=== PATIENT | male | born 1970 | race Caucasian/White ===

== ENCOUNTER → 2016-10-16 | Outpatient (CLI) | payer OTHER | END | disposition home or self-care (01) | LOC: PCVCIMAG 09:36 | PROVIDERS: ATTEND Internal Medicine Cardiovascular Disease | DX: I10 Essential (primary) hypertension (principal); E78.5 Hyperlipidemia, unspecified; M19.90 Unspecified osteoarthritis, unspecified site; I63.9 Cerebral infarction, unspecified; E78.1 Pure hyperglyceridemia; J44.9 Chronic obstructive pulmonary disease, unspecified; I77.9 Disorder of arteries and arterioles, unspecified; I25.10 Atherosclerotic heart disease of native coronary artery without angina pectoris; R42 Dizziness and giddiness; R51 Headache | CPT/HCPCS: 76770; 80061; 93005; 93975 ==

== ENCOUNTER → 2017-10-25 | Outpatient (CLI) | payer OTHER | END | disposition home or self-care (01) | LOC: PCVCIMAG 09:42 | DX: Z01.818 Encounter for other preprocedural examination (principal); I25.10 Atherosclerotic heart disease of native coronary artery without angina pectoris; I10 Essential (primary) hypertension; E78.5 Hyperlipidemia, unspecified; I73.9 Peripheral vascular disease, unspecified; J44.9 Chronic obstructive pulmonary disease, unspecified; I25.2 Old myocardial infarction; G47.30 Sleep apnea, unspecified | CPT/HCPCS: 93325; 93351 ==

== ENCOUNTER → 2018-08-14 | Outpatient (CLI) | payer OTHER ==
[~2018-08-14] MED LIST: REGADENOSON 0.4 MG/5 ML DISP.SYRIN. IV ONE
--- NOTE | 2018-08-15 11:20 | PCVCIMAG ---
APPROVED REPORT Imaging Protocol: Rest Tc-99m/Stress Tc-99m 1 day Study performed: 08/14/2018 08:47:20 Indication: CAD , Chest pain, Dyspnea, Failed Stress Echo Patient Location: Out-Patient Stress Nurse: Ashley Vega RN, Dana Best RN [place] Tech:JOSUE Cruz Ht: 6 ft 1 in Wt: 245 lbs BSA: 2.35 m2 HR: 84 bpm BP: 128/92 mmHg BMI: 32.3 Rhythm: Sinus Rhythm, Nonspecific T wave Abn Medical History Medical History: HTN, Hyperlipidemia, PVD, CVD (CVA x 2), Current smoker Medications: Atorvastatin, Klonopin, Plavix, Zetia, Imdur, Ranexa, Carvedilol, Benicar-HCT Allergies: Neosporin, Bacitracin Cardiac Risk Factors: Age Pretest Chest Pain Characteristics: No chest pain Exercise History: Physically active Meds Held (24 hrs): Carvedilol, Imdur Collateralized Occluded RCA Resting Data Rest SPECT myocardial perfusion imaging was performed in supine position 45 minutes following the intravenous injection of 11.4 mCi of Tc-99m Sestamibi. Time of rest injection: 819 Date: 08/14/2018 Administration Route: IV Administration Site: Right Wrist Pharmacologic Stress Pharmacologic stress test was performed by injecting Regadenoson 0.4 mg IV push over 10-15 seconds immediately followed by the intravenous injection of 34.8 mCi of Tc-99m Sestamibi. Time of stress injection: 949 Date: 08/14/2018 Administration Route: IV Administration Site: Right Wrist Gated Stress SPECT was performed 45 minutes after stress injection. The images were gated to evaluate regional wall motion and calculate left ventricular ejection fraction. Stress Test Details Stress Test: Pharmacologic stress was paired with low level exercise. Reason for pharmacologic stress test: unable to achieve target heart rate. HRMax Heart Rate (APMHR): 173 bpm Resting HR: 84 bpmTarget HR (85% APMHR): 147 bpm Max HR Achieved: 120 bpm % of APMHR: 69 Recovery HR: 97 bpm BP Resting BP: 128/92 mmHg Max BP: 150/78 mmHg Recovery BP: 137/96 mmHg ECG Resting ECG: Sinus Rhythm, Nonspecific T wave Abn Stress ECG: Sinus Tachycardia, Nonspecific T wave Abn Recovery ECG: Sinus Rhythm, Nonspecific T wave Abn Clinical Reason for Termination: Completed protocol Stress Symptoms: Chest pain, Dyspnea Exercise duration: 4 min 00 sec Exercise capacity: 1.6 METs Symptoms resolved with caffeine. Stress ECG Conclusion non diagnostic baseline abn Study Quality Study: Good Study Data Post stress, the left ventricular ejection was 55%.. SSS: 4 SRS: 0 SDS: 4 TID = 1.04. 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 Post stress, the left ventricular ejection was 55%. No prior study available for comparison. Interpreted by: Mark Srinivasan MD Electronically Approved: 08/14/2018 22:23:46 <Conclusion> non diagnostic baseline abn
== END | disposition home or self-care (01) ==
LOC: PCVCIMAG 08:13
PROVIDERS: ATTEND Internal Medicine Cardiovascular Disease
DX: R07.9 Chest pain, unspecified (principal); R06.00 Dyspnea, unspecified; I25.10 Atherosclerotic heart disease of native coronary artery without angina pectoris; I73.9 Peripheral vascular disease, unspecified; F17.210 Nicotine dependence, cigarettes, uncomplicated; E78.5 Hyperlipidemia, unspecified; E78.00 Pure hypercholesterolemia, unspecified; J44.9 Chronic obstructive pulmonary disease, unspecified; M19.90 Unspecified osteoarthritis, unspecified site; E78.1 Pure hyperglyceridemia; Z88.8 Allergy status to other drugs, medicaments and biological substances
CPT/HCPCS: 78452; 93017; A9500; J2785